=== PATIENT | female | born 1960 | race Caucasian/White ===

== ENCOUNTER 2017-09-11 09:59 | Outpatient (RCR) | payer MEDICAID, SELFPAY ==
--- NOTE | 2017-09-11 14:13 | HP.PTEVAL_ITS ---
Patient's Visit Information RADHA MEDINA is a 57 year old F referred to Physical Therapy by Crista Washington with a diagnosis of ARTHRITIS OF KNEE. Date of Evaluation: 09/11/17 Physical Therapist: Lisa Harmon Cross - Visit Plan Plan: WILL HOLD PT AT THIS TIME PENDING ORTHO CONSULT OUTCOME. - Subjective Subjective: Diagnosis: ARTHRITIS OF KNEE. Work/Leisure: UNEMPLOYEED. Disability: YES. FOR KNEES. Present symptoms: ALCIDES KNEE PAIN AND IT IS MAKING HER BACK HURT. Present since: 5 MORE YEARS. Pain Scale: RIGHT KNEE: WORST 8/10, LEAST 0/10, LEFT KNEE: WORST 8/10, LEAST 0/10. Currently: 0/10. Commenced as a result of: NO APPARENT REASON. Symptoms at onset: SAME. Worse : STANDING AND WALKING. SQUATTING, TRYING TO GET UP OFF THE FLOOR. GETTING IN /OUT OF THE BATH CHAIR. Better: WATER EX. Disturbed sleep: YES. Previous history/Previous treatment: 2015 FOR R TKR, 2016 L TKR BOTH DONE BY DR. MINER. H /O OF A LOT OF FALLS SINCE THE REPLACEMENTS. HAS TRIED WATER PT AND IT HELPS. NO INJECTIONS SINCE THE KNEE REPLACEMENTS. Gait: GAIT WITHOUT AD (FURNITURE WALKS) IN THE HOUSE. CANE OR WALKER NEEDED. USES THE WALKER (FWW) USUALLY WHEN OUT OF HOUSE TO TRY TO KEEP FROM FALLING. Accidents: NOT LATELY. Unexplained weight loss: NO. Imaging: NONE RECENT BUT STATES SHE IS TRYING TO GET HER DOCTOR TO ORDER X-RAYS. PMH: HTN, HYPOTHYROIDISM, DEPRESSION, STOMACH PROBLEMS. RIGHT ANKLE FX IN 2016. Recent major surgery: TKR'S. OTHER : PATIENT REPORTS THAT DR. MINER REFERRED HER TO DR. VIZCARRA AND SHE HAD TO CANCEL SOME APPOINTMENTS WITH HIM SO THEY WON'T TAKE HER ANYMORE. STATES SOMEONE TOLD HER TO GO TO THE [facility] BUT SHE DOESN'T WANT TO GO THAT FAR. - Objective THIS PATIENT AMBULATES INDEP'LY INTO PT WITH A FWW WITH A SLOW ANTALGIC GAIT PATTERN. SHE IS VERY DEPENDENT ON THE WALKER AND SHE WALKS WITH A WIDE BASE OF SUPPORT, DECREASED ALCIDES HEEL STRIKE AND TOE OFF PHASES OF GAIT. SHE ALSO HAS DECREASED ALCIDES KNEE FLEXION DURING SWING PHASES AND SHE GENERALY WALKS WITH HER KNEES LOCKED STRAIGHT. INDEP TRANSFERS SIT TO STAND AND REVERSE BUT SHE HAS TO ROCK AND IT TAKES HER SEVERAL ATTEMPS TO TRANSFER FROM SIT TO STAND RELYING HEAVILY ON HER UE'S. STAND TO SIT SHE ALSO RELIES HEAVILY ON HER UE'S. Sitting Posture: POOR. Standing Posture: POOR. ALCIDES ILIAC CRESTS ARE PRETTY SYMMETRICAL. Active Correction of posture: NE. Motor deficit: RIGHT LE: HIP 3-/5, KNEE EXT 2+/5, KNEE FLEX 3-/5, ANKLE DORSIFLEX 4-/5. LEFT LE: HIP 3/ 5, KNEE EXT 3-/5, KNEE FLEX 3-/5, ANKLE DORSIFLEX 4/5. Sensory deficit: ALCIDES LE LIGHT TOUCH SENSATION APPEARS TO BE INTACT. ROM deficit: IN SUPINE WITH HEEL SLIDE: RIGHT KNEE = FULL EXT TO 99 DEG FLEX. LEFT KNEE = FULL EXT TO 95 DEG FLEX. IN SITTIN DEG EXTENSOR LAG RIGHT AND 53 DEG EXT LAG LEFT. * WHEN TESTING ROM IN LYING HER KNEES SHIFT OR DISLOCATE/RELOCATE WHICH IS VISIBLE TO THIS PT AND PATIENT REPORTS THIS HAPPENS ALL THE TIME AND IS SOMETIMES THE REASON SHE FALLS. SHE IS ABLE TO DO A QUAD SET ON BOTH LEGS. SHE IS ABLE TO INDEP'LY GET HER LLE ON THE TABLE TRANSFERING FROM SIT TO SUPINE BUT SHE ASSISTS HER RIGHT LE WITH HER UE'S. Reflexes: NT. Core strength: POOR. Palpation: SHE HAS FLUID ON BOTH KNEES AND HER KNEE CAPS ARE HYPER- MOBILE. SHE ALSO PUSHES SIDEWAYS ON HER KNEES SHOWING ME THAT THEY SHIFT. OTHER: I CALLED AND SPOKE WITH DR. WASHINGTON'S NURSE. I RECOMMENDED ORTHO CONSULT PRIOR TO TRIAL OF PHYSICAL THERAPY. NURSE REPORTS THAT IT APPEARS FROM DR. WASHINGTON'S NOTES THAT SHE WAS CONSIDERING ORTHO CONSULT AND EXPECTING ORDERS FROM IMAGING TO COME FROM ORTHO. - Rehabilitation Potential Rehabilitation Potential: Poor - Anticipated Interventions Thank you for the opportunity to evaluate your patient. For Medicare and Medicare HMO plans, please review the plan of care and approve it. It will need to be FAXED BACK to us at [phone] for Medicare purposes. Please let me know if there are questions or concerns regarding this plan of care. Physician Signature: Date:
--- NOTE | 2017-12-30 12:58 | HP.PT.NRP ---
HP - Discharge Summary (1) - Patient Information RADHA MEDINA was seen in my office for initial evaluation on 09/11/17. The following Plan of Care was established for this patient: This patient was last seen in our office 09/11/17. Pertinent comments regarding their Physical therapy will appear below: This patient has not returned to Physical Therapy and is appropriate to return to MD for further follow-up as needed. At this point I will be discontinuing this patient from physical therapy. I would be happy to see this patient again in the future if found appropriate by the physician. Thank you! Lisa Porter
== END 2017-09-11 19:00 | disposition home or self-care (01) ==
LOC: PT 09:59
PROVIDERS: Family Provider Student in an Organized Health Care Education/Training Program; PCP Student in an Organized Health Care Education/Training Program; Visit Provider Student in an Organized Health Care Education/Training Program
DX: M17.10 Unilateral primary osteoarthritis, unspecified knee (principal)
CPT/HCPCS: 97163

== ENCOUNTER 2017-10-17 11:45 | Emergency (ER) | payer MEDICAID, SELFPAY ==
[2017-10-17 11:47] VITALS: BP 175/99; PULSE 65; RESP 18; TEMP 36.8; O2SAT 97; BMI 44.5
--- NOTE | 2017-10-17 12:22 | RAD_ITS ---
STUDY: X-RAY - LEFT WRIST REASON FOR EXAM: Female, 57 years old. Continued pain and swelling following a recent fall. History of prior wrist fracture. TECHNIQUE: 3 view(s) of the wrist were obtained. COMPARISON: None. FINDINGS: There is evidence of an old avulsion fracture of the ulnar styloid. Normal radiocarpal articulation. Normal distal radioulnar articulation. Normal carpal bones. Normal carpal articulations. Normal carpometacarpal articulation of the thumb. Normal second through fifth carpometacarpal articulations. Normal visualized metacarpal bones. Diffuse soft tissue swelling. RAD/Wrist min 3 Views IMPRESSION: Old avulsion fracture of the ulnar styloid. Soft tissue swelling. Electronically Signed: Jonathan Boateng MD at 12:47 EDT Tel [phone], Service support ,
--- NOTE | 2017-10-17 12:55 | ED.DCSUM_ITS ---
- ER Visit Summary Date of Service: 10/17/17 Chief Complaint: Left wrist injury History of Present Illness: The patient is a 57 F who states that on Mother's Day approximately one half weeks ago, she states she is getting up out of her recliner and pushed up on her hands felt pain in the left wrist. She was seen at [facility]. She states they did x-rays and diagnosed as a wrist sprain. She has been using a Velcro splint. She states she continues to have a large amount of swelling is concerned that there is a missed fracture. She was seen Dr. Lopez for orthopedics but states she cannot go there because she missed too many appointments. She has not seen her family doctor for this. She notes a old ulnar styloid fracture from the past. Physical Examination: Afebrile vital signs are stable Gen: Well-nourished well-developed Head: Normocephalic atraumatic Eyes: Perrl EOMI ENT: TMs clear no rhinorrhea moist mucous membranes Neck: Supple no lymphadenopathy no JVD nontender CVS: Regular rate rhythm no murmurs normal S1-S2 Respiratory: No distress clear to auscultation bilaterally chest nontender Abdomen: Soft nontender nondistended normal bowel sounds no masses Back: Nontender Extremity: The left wrist and hand is diffusely swollen. There is normal capillary refill. There is noted deformity which the patient states is old from the previous fracture. Neurovascularly intact. Skin: Normal color no rash Neuro: alert orientated ?3 CN II-XII intact normal strength sensation reflexes gait cerebellar Psych: Normal affect normal mood Test Results: X-rays revealed chronic changes but no acute or subacute fractures. Emergency Department Course and Treatment: Patient will be encouraged to use the hand and the wrist. Use the splint only for support if needed otherwise try to limit time spent in it. The patient will follow up with her primary care doctor. Impression: 1. Left wrist sprain This note was generated with [employer] dictation software. It may contain incorrect words, spelling, and punctuation that were not noted in review of the chart prior to signing ED Disposition - Plan for ED Patient: Disposition: Home or Assisted Living Chief Complaint: Upper Extremity Injury Instructions: ED Sprain Wrist Referrals: Crista Washington MD [Primary Care Provider] - (Call today to arrange follow- up in 1 week.)
[2017-10-17 13:04] VITALS: PULSE 64; RESP 17; O2SAT 98
== END 2017-10-17 13:04 | disposition home or self-care (01) ==
PROVIDERS: Emergency Provider Emergency Medicine; Family Provider Student in an Organized Health Care Education/Training Program; PCP Student in an Organized Health Care Education/Training Program
DX: S63.502A Unspecified sprain of left wrist, initial encounter (principal); X50.1XXA Overexertion from prolonged static or awkward postures, initial encounter; Y93.89 Activity, other specified; Y92.9 Unspecified place or not applicable; E66.9 Obesity, unspecified; I10 Essential (primary) hypertension; B19.20 Unspecified viral hepatitis C without hepatic coma; Z68.41 Body mass index [BMI] 40.0-44.9, adult; Z79.899 Other long term (current) drug therapy; Z72.0 Tobacco use
CPT/HCPCS: 73110; 99282; J7030; A4216

== ENCOUNTER → 2018-01-17 16:06 | Outpatient (CLI) | payer MEDICAID, SELFPAY ==
[2018-01-23 08:13] LABS: HPV Reflexed? NOT INDICATED
== END ==
PROVIDERS: Visit Provider Obstetrics & Gynecology
DX: Z12.4 Encounter for screening for malignant neoplasm of cervix (principal); Z12.72 Encounter for screening for malignant neoplasm of vagina
CPT/HCPCS: 88175; G0145